=== PATIENT | female | born 1985 | race Two or more races ===

== ENCOUNTER 2016-07-09 20:23 | Emergency (ER) | payer SELFPAY ==
[2016-07-09] MEDS ORDERED: KETOROLAC TROMETHAMINE 60 MG/2 ML VIAL ONE (21:58)
[2016-07-09] MEDS ORDERED: PREDNISONE 20 MG TABLET ONE (21:59)
--- NOTE | 2016-07-10 06:02 | RAD ---
LUMBAR SPINE ROUTINE 2 3 VWS HISTORY: Low back injury. COMPARISONS: None. FINDINGS: AP and lateral views of the lumbar spine were performed demonstrating 5 nonrib-bearing lumbar-type vertebral bodies. The vertebral body height and alignment is intact. There may be minimal disc height loss seen at L5-S1. The posterior elements are intact. The sacrum and sacroiliac joints are unremarkable. There is a partially obscured intrauterine device projecting over the left aspect of the pelvis. IMPRESSION: 1. Discogenic degenerative changes at L5-S1 with mild disc height loss. 2. No significant compression deformity visualized. 3. A partially obscured intrauterine device projecting over the left aspect of the lower sacrum.
--- NOTE | 2016-07-10 06:03 | RAD ---
SACRUM AND COCCYX HISTORY: Back pain. COMPARISONS: None. FINDINGS: AP and lateral views of the sacrum and coccyx demonstrate an intact appearance of the osseous structures. There is no discrete fracture visualized. The sacral neural arcuate lines remain intact. No widening of the adjacent sacroiliac joints is observed. Mild anterior deviation of the coccygeal process is observed with no coccygeal fracture identified. There is an intrauterine device projecting over the left aspect of the lower sacrum. IMPRESSION: 1. No discrete fracture visualized. 2. An intrauterine device projecting over the left aspect of the lower sacrum.
== END 2016-07-09 22:23 ==
LOC: ED 20:23
DX: M54.5 Low back pain (principal)